=== PATIENT | female | born 1990 | race Caucasian/White ===

== ENCOUNTER 2017-09-12 08:58 | Outpatient (CLI) | payer OTHER ==
[2017-09-12 09:26] LABS: Appearance,Urine Clear (Clear); Bacteria,Urine Rare /hpf; Bilirubin,Urine Negative (Negative); Blood,Urine Large (Negative); Color,Urine Light Yellow; Glucose,Urine (UA) Trace (Negative); Ketones,Urine Negative (Negative); Leukocyte Esterase,Urine Moderate (Negative); Mucus,Urine Rare /hpf; Nitrite,Urine Negative (Negative); PH, Urine 7.5 (5.0-8.0); Protein,Urine Negative (Negative); RBC,Urine 1 /hpf (0-5); Specific Gravity,Urine 1.006 (1.001-1.035); Squamous Epithelial Cell,Urine 6 /hpf (0-4); Urobilinogen,Urine <2.0 mg/dL (<2.0); WBC,Urine 10 /hpf (0-5)
[2017-09-12 10:16] LABS: Basophils % (A) 0 %; Eosinophils # (A) 0.1 k/uL (0-0.7); Eosinophils % (A) 1 %; HCT 32.1 % (34.0-46.0); HGB 10.7 gm/dL (11.4-16.0); Lymphocytes # (A) 0.7 k/uL (1.0-4.8); Lymphocytes % (A) 7 %; MCH 31.6 pg (25.0-35.0); MCHC 33.3 g/dL (31.0-37.0); MCV 94.8 fL (80.0-100.0); Monocytes # (A) 0.6 k/uL (0-1.0); Monocytes % (A) 6 %; Neutrophils # (A) 9.3 k/uL (1.3-7.7); Neutrophils % (A) 86 %; Platelet Count 205 k/uL (150-450); RBC 3.39 m/uL (3.80-5.40); WBC 10.9 k/uL (3.8-10.6)
--- NOTE | 2017-09-12 10:20 | US ---
EXAMINATION TYPE: US OB >= 14 wk fetus DATE OF EXAM: 09/12/2017 COMPARISON: None CLINICAL HISTORY: vag bleeding Pt states painless vaginal bleeding that started this AM TECHNIQUE: Transabdominal (TA) GESTATIONAL AGE / DATING Physician Established: (33 weeks/6 days) EDC: 10/25/2017 Dates by LMP: Unknown Dates by First Scan: No prior Dates by Current Scan: (33 weeks/2 days) EDC: 10/29/2017 SURVEY IUP: Single PLACENTA: Anterior, appeared wnl PREVIA: No Previa OSVALDO: 15.2 Normal CERVICAL LENGTH (transabdominal: norm > 3.0cm): 3.2 cm, possible funneling Transvaginal US not performed per Dr. Jones BIOMETRY PRESENTATION: Breech BPD: 8.7 cm 35 weeks / 2 days HC: 32.1 cm 36 weeks / 1 days AC: 30.9 cm 34 weeks / 6 days FL: 5.9 cm 30 weeks / 6 days ESTIMATED WEIGHT IN GRAMS: 2306 grams ESTIMATED WEIGHT IN LBS/OZ: 5 lbs. 1 oz. WEIGHT PERCENTAGE BASED ON ESTABLISHED DATES: 44.6% HC/AC: 1.04 Normal FL/AC: 19 Abnormal HEART RATE: 141 bpm RHYTHM: Normal Single, viable IUP/ Abnormal femur length, possible cervical funneling Results given to Dr. Jones at time of exam IMPRESSION: 1. JOHN FETUS PRESENT IN A BREECH PRESENTATION WITH A GESTATIONAL AGE OF 33 WEEKS 2 DAYS +/- 3 W EEKS. ESTIMATED DATE OF CONFINEMENT BASED ON THIS EXAMINATION IS 10/29/2017. 2. ABNORMALLY SHORT FEMURS. 3. NO EVIDENCE OF PLACENTA PREVIA OR ABRUPTION.
[2017-09-12 10:25] VITALS: BP 113/65; PULSE 105; RESP 16; TEMP 98.3
[2017-09-12] MEDS ORDERED: BETAMET ACET-BETAMETH SOD PHOS 6 MG/ML VIAL IM SCH (13:15)
--- NOTE | 2017-10-30 11:30 | P.MSEPDOC ---
Presenting Problems - Arrival Data Date of Arrival on Unit: 09/12/17 Time of Arrival on Unit: 09:00 Mode of Transport: Ambulatory - Complaint OB-Reason for Admission/Chief Complaint: Vaginal Bleeding Medical History - Information : 1 Para: 0 Term: 0 : 0 Abortions: Spontaneous or Elective: 0 Number of Living Children: 0 - Gestational Age Gestational Age by GARCIA (wks/days): 33 Weeks and 6 Days Review of Systems - Review of Systems Constitutional: No problems Breast: No problems ENT: No problems Cardiovascular: No problems Respiratory: No problems Gastrointestinal: No problems Genitourinary: No problems Musculoskeletal: No problems Neurological: No problems Skin: No problems Vital Signs - Temperature Temperature: 98.3 F Temperature Source: Oral - Pulse Brachial Pulse Rate: 105 Pulse Assessment Method: Automatic Cuff - Respirations Respiratory Rate: 16 Oxygen Delivery Method: Room Air - Blood Pressure Right Arm Sitting Blood Pressure: 113/65 Blood Pressure Mean: 81 Blood Pressure Source: Automatic Cuff Medical Screen Scoring (Pre) - Cervical Exam Dilation: 1-3 cm = 1 Membranes: Intact - Uterine Contractions Frequency: N/A Duration: N/A Intensity: N/A - Maternal Vital Signs Maternal Temperature: N/A Maternal Blood Pressure: N/A Signs of Preeclampsia: N/A Maternal Respirations: N/A - Pain Assessment Pain Scale Used: Numeric (1 - 10) Pain Intensity: 0 - Total Score Total Score (Pre): 1 - Level of Risk Level of Risk: Low (0-5) Physician Notification (Pre) - Physician Notified Physician Notified Date: 09/12/17 Physician Notified Time: 09:23 Physician/Practitioner Notifed:: Dr Jones New Order Received: Yes - Notification Comment Comment: reported vag bleeding with exam and pt states her Fe has been low with bouts of dizziness. orders received for u/s and labs per Dr Jones Medical Screen Scoring (Post) - Assessment Heart Rate: 145 Heart Rate - NICHD Category: Category I (Normal) = 0 NST: Reactive Position: N/A Station: N/A - Total Score Total Score (Post): 0 - Post Treatment Level of Risk Post Treatment Level of Risk: Low (0-5) Physician Notification (Post) - Physician Notified Spoke With: Dr Jones - Notification Comment Comment: pt watched from [id number] for signs of active labor. pt received celestone and was placed on bedrest at home. pt will return tomorrow for 2nd celestone and call ob office first thing thursday am for f/u appt per garrett Jones Disposition - Disposition OB Disposition: Discharge to home, Written follow up instructions reviewed Discharge Date: 09/12/17 Discharge Time: 13:35 I agree with the RN Medical Screening Exam: Yes Risk & Benefit of care provided described in d/c instruction: Yes Diagnosis: SPOTTING COMPLICATING , THIRD TRIMESTER
== END 2017-09-12 13:35 | disposition home or self-care (01) ==
LOC: FBPOP 08:58
PROVIDERS: ATTEND Obstetrics & Gynecology
DX: O26.853 Spotting complicating pregnancy, third trimester (principal); Z3A.33 33 weeks gestation of pregnancy
CPT/HCPCS: 59025; 96372; 83540; 85025; 81001; 76805; G0463; J0702; 99214

== ENCOUNTER 2018-03-29 07:45 | Day surgery (SDC) | payer MEDICAID, OTHER ==
[2018-03-17 12:43] VITALS: BMI 28.3
[~2018-03-29 07:45] MED LIST: DEXAMETHASONE SOD PHOSPHATE 10 MG/ML 1 ML VIAL IV ONE; LACTATED RINGERS 1,000 ML IV SCH; LIDOCAINE 1% 20 ML VIAL (10MG/ML) FOR IV START INTRADERMA PRN; MIDAZOLAM 2 MG/2 ML VIAL IV PRN; Pre Op ABX Message 1 EACH MISC MISCELLANE ONE; fentaNYL (PF) 50 MCG/ML 2 ML AMP IV PRN
[2018-03-29 08:11] VITALS: RESP 16
[2018-03-29] MEDS ORDERED: ONDANSETRON 4 MG/2 ML VIAL IVP ONE (08:37)
[2018-03-29] MEDS ORDERED: fentaNYL (PF) 50 MCG/ML 2 ML AMP ONE (08:52)
[2018-03-29] MEDS ORDERED: SUCCINYLCHOLINE CHLORIDE 100 MG/5 ML SYR IV ONE (08:52)
[2018-03-29] MEDS ORDERED: MIDAZOLAM 2 MG/2 ML VIAL ONE (08:52)
[2018-03-29] MEDS ORDERED: PROPOFOL 10 MG/ML 20 ML VIAL IV ONE (08:52)
[2018-03-29] MEDS ORDERED: LIDOCAINE 1% INJ 10MG/ML (20 ML MDV) ONE (08:52)
[2018-03-29] MEDS ORDERED: BUPIVACAINE (PF) 0.5% 30 ML VIAL MISCELLANE ONE ×3 (09:12→09:23)
[2018-03-29] MEDS: BUPIVACAINE LIPOSOME MISCELLANE ONE ×4 (09:17→09:22)
[2018-03-29] MEDS: SODIUM CHLORIDE 0.9% MISCELLANE ONE ×4 (09:17→09:22)
[2018-03-29] MEDS: BUPIVACAINE (PF) 0.5% 30 ML VIAL MISCELLANE ONE ×2 (09:23→09:30)
[2018-03-29] MEDS ORDERED: BUPIVACAINE LIPOSOME/PF 1.3% 20 ML VIAL MISCELLANE STA (09:27)
--- NOTE | 2018-03-29 09:43 | P.OP ---
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 A digital rectal exam was carried out. No masses were felt. An anoscopy is performed. She has evidence of a fairly large anal fissure anteriorly. No evidence of any significant internal or external hemorrhoidal disease. No evidence of any hypertrophied anal papillae were anal skin tags contributing to the fissure. An 11 blade was used to make a stab in the left lateral portion of the anus. The internal sphincter was then divided. A gentle anal dilation was carried out to break any remaining internal sphincter muscle fibers. A perianal block was then carried out using Marcaine along with exparel. A dressing was applied. She tolerated the procedure without difficulty was taken recovery in satisfactory condition. Ring to or personnel, all counts are correct. Plan - Discharge Summary New Discharge Prescriptions: New HYDROcodone/APAP 5-325MG [Star 5-325] 1 - 2 tab PO Q4H PRN #30 tab PRN Reason: Pain No Action Pnv No.95/Ferrous Fum/Folic AC [ Multivitamin Tablet] 1 each PO DAILY Control Pill 1 tab PO QAM Discharge Medication List Control Pill 1 tab PO QAM 03/17/18 [History] Pnv No.95/Ferrous Fum/Folic AC [ Multivitamin Tablet] 1 each PO DAILY [History] HYDROcodone/APAP 5-325MG [Star 5-325] 1 - 2 tab PO Q4H PRN #30 tab 03/29/18 [Rx ] Follow up Appointment(s)/Referral(s): Kendal Guthrie DO [Doctor of Osteopathic Medicine] - (1-2 weeks) Activity/Diet/Wound Care/Special Instructions: Clean gently after bowel movement. Use wet wipe and dry with toilet tissue. You may sit in a tub of warm water as needed for discomfort. Small amount of bleeding is normal. Take a stool softener and/or fiber daily to prevent constipation. If you do develop constipation, you may take 2 tablespoons milk of magnesia. Call if questions or concerns Discharge Disposition: HOME SELF-CARE
[2018-03-29 09:58] VITALS: TEMP 98
[2018-03-29 10:53] VITALS: BP 135/85; PULSE 93
== END 2018-03-29 11:36 | disposition home or self-care (01) ==
LOC: OR 07:45
PROVIDERS: ATTEND Surgery
DX: K60.2 Anal fissure, unspecified (principal); Z79.899 Other long term (current) drug therapy; Z79.3 Long term (current) use of hormonal contraceptives
CPT/HCPCS: 46080; J2250; J1100; J2405; J2001; J3010; J0330; C9290; J2704